=== PATIENT | female | born 1970 | race Caucasian/White ===

== ENCOUNTER → 2018-01-22 | Outpatient (CLI) | payer OTHER ==
[~2018-01-22] MED LIST: AMLO-96 PO; ATOR20TA65 PO; ESCI10TA8 PO; HYDR-2963 PO; HYDR-2966 PO; PNEI IM; POTA-23 PO; SIMV-54 PO; TRAZ-156 PO; VALS160T7 PO
== END ==
LOC: LAB 08:40
PROVIDERS: ATTEND Nurse Practitioner Family
DX: E87.6 Hypokalemia (principal)
CPT/HCPCS: 36415; 82310; 82374; 82435; 82565; 82947; 84132; 84295; 84520